=== PATIENT | female | born 1965 | race Caucasian/White ===

== ENCOUNTER 2023-02-23 15:09 | Emergency (ER) | payer OTHER ==
[~2023-02-23] VITALS: Ht 165.1 cm; Wt 91.0 kg
[2023-02-23 15:19] VITALS: TEMP 98.2; O2SAT 95
[2023-02-23 20:34] VITALS: BP 170/76; PULSE 68; RESP 18
== END 2023-02-23 20:37 | disposition home or self-care (01) ==
LOC: ER 15:09
DX: N60.02 Solitary cyst of left breast (principal)
CPT/HCPCS: 76641; 99284